=== PATIENT | female | born 1945 | race Caucasian/White ===

== ENCOUNTER → 2017-01-31 | Outpatient (CLI) | payer OTHER ==
[~2017-01-31] MED LIST: FENOFIBRATE PO; LEVOTHYROXIN0.075 MG PO; PREDNISONE 20 M20 MG PO; PROMETHAZINE-C120 ML PO; PROVENTIL HFA6.7 G1 INH; ZYRTEC10 M2 PO
== END ==
LOC: RAD 01:10
DX: Z12.31 Encounter for screening mammogram for malignant neoplasm of breast (principal)

== ENCOUNTER → 2018-03-21 | Outpatient (CLI) | payer OTHER | LOC: RAD 00:31 | DX: Z12.31 Encounter for screening mammogram for malignant neoplasm of breast (principal) ==

== ENCOUNTER → 2019-04-18 | Outpatient (CLI) | payer OTHER | LOC: RAD 01:07 | DX: Z12.31 Encounter for screening mammogram for malignant neoplasm of breast (principal) ==

== ENCOUNTER → 2020-06-22 | Outpatient (CLI) | payer OTHER | LOC: BC 10:42 | PROVIDERS: ATTEND Family Medicine | DX: Z12.31 Encounter for screening mammogram for malignant neoplasm of breast (principal) ==

== ENCOUNTER → 2021-07-08 | Outpatient (CLI) | payer OTHER | LOC: RAD 12:58 | PROVIDERS: ATTEND Family Medicine | DX: Z12.31 Encounter for screening mammogram for malignant neoplasm of breast (principal) ==